=== PATIENT | female | born 1945 | race Two or more races ===

== ENCOUNTER 2023-12-26 11:38 | Emergency (ER) | payer BC ==
[~2023-12-26] VITALS: Ht 154.9 cm; Wt 62.1 kg
[2023-12-26 12:16] VITALS: BP 169/78; PULSE 94; RESP 16; TEMP 99.3; O2SAT 99
[2023-12-26] MEDS: ACETAMINOPHEN 500 MG TAB PO ONE (12:53)
[2023-12-26] MEDS ORDERED: TRAM-626 PO (13:50)
== END 2023-12-26 13:56 | disposition home or self-care (01) ==
LOC: ER 11:38
DX: M51.16 Intervertebral disc disorders with radiculopathy, lumbar region (principal); I10 Essential (primary) hypertension; E78.5 Hyperlipidemia, unspecified
CPT/HCPCS: 72131

== ENCOUNTER → 2024-04-15 | Outpatient (CLI) | payer BC ==
[~2024-04-15] MED LIST: TRAM-626 PO
== END | disposition home or self-care (01) ==
LOC: LAB 12:22
PROVIDERS: ATTEND Family Medicine
DX: D48.5 Neoplasm of uncertain behavior of skin (principal)

== ENCOUNTER → 2024-04-26 | Outpatient (CLI) | payer BC ==
[2024-04-26 11:29] LABS: Urine Bacteria None Seen /hpf (None Seen)
[2024-04-26 11:44] LABS: Basophils # (auto) 0.1 10 ^3/uL (0-0.2); Eosinophils # (auto) 0.2 10 ^3/uL (0-0.8); Monocytes # (auto) 0.5 10 ^3/uL (0-1.3); Neutrophils # (auto) 2.3 10 ^3/uL (1.6-8.6)
[2024-04-26 11:45] LABS: Urine Blood Negative /uL (Negative); Urine Clarity Clear (Clear); Urine Color Yellow (Yellow); Urine Hyaline Cast FEW /lpf (0 - 2); Urine Mucus FEW (None Seen); Urine Protein, UAD TRACE (Negative); Urine Urobilinogen Normal (Negative); Urine WBC 2 /hpf (0 - 5); Urine pH 5.5 (5.0-9.0)
[2024-04-26 11:49] LABS: Basophils % (auto) 1.2 % (0.0-2.0); Eosinophils % (auto) 3.4 % (0.0-7.0); Hematocrit 34.7 % (36.0-46.0); Hemoglobin 11.1 g/dL (12.2-16.2); Lymphocytes # (auto) 2.5 10 ^3/uL (0.4-5.4); Lymphocytes % (auto) 44.4 % (10.0-50.0); Mean Corpuscular Hemoglobin 24.4 pg (28.0-32.0); Mean Corpuscular Hgb Conc. 32.1 g/dL (32.0-36.0); Mean Corpuscular Volume 76.1 fL (80.0-100.0); Monocytes % (auto) 8.7 % (0.0-12.0); Neutrophils % (auto) 42.3 % (37.0-80.0); Platelet Count (auto) 240 10^3/uL (140-450); Red Blood Cells 4.57 10^6/uL (4.0-5.20); Red Cell Distribution Width 16.5 % (11.8-14.3); White Blood Cell 5.5 10^3/uL (4.4-10.8)
[2024-04-26 12:07] LABS: Alanine Aminotransferase 16 U/L (7-40); Albumin 4.5 g/dL (3.2-4.8); Alkaline Phosphatase 143 U/L (46-116); Anion Gap 5 (5-15); Aspartate Aminotransferase 15 U/L (13-40); BUN/Creatinine Ratio 17.6 (10.0-20.0); Blood Urea Nitrogen 16 mg/dL (9-23); Calcium 10.2 mg/dL (8.7-10.4); Carbon Dioxide 25 mmol/L (20-30); Chloride 107 mmol/L (98-107); Cholesterol 182 mg/dL (< 200); Glucose 111 mg/dL (74-106); HDL Cholesterol 63 mg/dL (40-59); LDL Cholesterol 102 mg/dL (< 100); Potassium 4.5 mmol/L (3.5-5.1); Sodium 137 mmol/L (136-145); Triglycerides 100 mg/dL (< 150)
[2024-04-26 12:08] LABS: Bilirubin, Total 0.6 mg/dL (0.2-1.0); Total Protein 7.3 g/dL (5.7-8.2)
== END | disposition home or self-care (01) ==
LOC: LAB 11:19
DX: I10 Essential (primary) hypertension (principal); E78.5 Hyperlipidemia, unspecified; E55.9 Vitamin D deficiency, unspecified; Z79.899 Other long term (current) drug therapy
CPT/HCPCS: 36415; 80053; 80061; 81001; 82306; 83036; 84443; 85025; 87086

== ENCOUNTER → 2024-07-20 | Outpatient (CLI) | payer BC ==
[2024-07-20 11:44] LABS: Beta HCG, Quantitative 2.3 mIU/mL (1.5-4.2)
[2024-07-20 11:47] LABS: Anion Gap 9 (5-15); Carbon Dioxide 23 mmol/L (20-31); Chloride 104 mmol/L (98-107); Potassium 4.4 mmol/L (3.5-5.1); Sodium 136 mmol/L (136-145)
[2024-07-20 11:49] LABS: Calcium 10.6 mg/dL (8.7-10.4)
[2024-07-20 11:53] LABS: BUN/Creatinine Ratio 21.6 (10.0-20.0); Blood Urea Nitrogen 21 mg/dL (9-23); Glucose 117 mg/dL (74-106)
[2024-07-21 08:06] LABS: AFP Serum Tumor Marker 4.1 ng/mL (0.0-8.7); Cancer Antigen (CA) 125 13.1 U/mL (0.0-38.1)
== END | disposition home or self-care (01) ==
LOC: LAB 10:13
PROVIDERS: ATTEND Obstetrics & Gynecology
DX: D25.9 Leiomyoma of uterus, unspecified (principal); R79.89 Other specified abnormal findings of blood chemistry; R19.00 Intra-abdominal and pelvic swelling, mass and lump, unspecified site; R19.09 Other intra-abdominal and pelvic swelling, mass and lump; N94.89 Other specified conditions associated with female genital organs and menstrual cycle; C56.9 Malignant neoplasm of unspecified ovary
CPT/HCPCS: 36415; 80048; 82105; 82378; 83615; 84702; 86304

== ENCOUNTER 2024-10-19 12:51 | Emergency (ER) | payer BC ==
[~2024-10-19] VITALS: Ht 154.9 cm; Wt 65.2 kg
[2024-10-19 13:16] VITALS: BP 166/75; RESP 20; O2SAT 98
[2024-10-19] MEDS ORDERED: ASPirin 81 mg TAB PO ONE (13:30)
--- NOTE | 2024-10-19 13:45 | DVH ---
EXAM: CT HEAD WITHOUT CONTRAST INDICATION: FIORE TECHNIQUE: CT of the head without intravenous contrast. Radiation Dose Information: CT Dose: CTDI volume is 54.95 mGy. Dose-length product is 1083.04 mGy*cm The dose indicators for CT are the volume Computed Tomography (CT) Dose Index (CTDIvol) and the Dose Length Product (DLP), and are measured in units of mGy and mGy-cm, respectively. These indicators are not patient dose, but values generated from the CT scanner acquisition factors. The report includes radiation exposure data for exposures received during this examination. COMPARISON: None FINDINGS: There is no evidence of acute intracranial hemorrhage, extra-axial collection, mass effect, midline s hift, herniation or hydrocephalus. The ventricles, sulci and cisterns are age appropriate. The leger-white differentiation is intact. Patchy periventricular and subcortical white matter hypoattenuation is nonspecific but may be related to small vessel ischemic disease. The visualized paranasal sinuses and mastoid air cells are clear. The surrounding soft tissues and osseous structures are unremarkable. IMPRESSION: 1. No acute intracranial hemorrhage 2. No paranasal sinus disease 3. No CT findings of territorial ischemia HS:Y
[2024-10-19 13:47] VITALS: PULSE 80
--- NOTE | 2024-10-19 13:47 | ED.PDOC ---
HPI (NEURO) HPI Comments 79y F who presents to the ED for chief complaint of face. Pt states she has been having intermittent numbness and pain around her mouth but states it had come back 25 minutes prior to ED arrival with associated chest pain. Pt otherwise is axox4 and denies any changes in vision, speech, or gait. Pt states she has had this in the past but states it occurs intermittently. Pt states she had appt with Dr. Lindsay 1 days prior and states she was told he recently had 2 minor heart attacks and states she is currently on Plavix. Pt otherwise denies any other symptoms at this time. Chief Complaint: Face pain Time Seen by MD: 13:41 Reviewed Notes: Medications, Allergies Information Source: Patient Mode of Arrival: Ambulatory Brought in by: self Severity: Moderate Dizziness/Weakness Severity: Does not affect activitie Headache Severity: None Timing: Minutes, Hours, Days, Weeks Duration: Since onset Prehospital treatment: None Numbness Location: Facial Onset: At rest Circumstances: Spontaneous Symptoms: Numbness History of: DM, Hypertension Modifying factors: Nothing Associated Signs and Symptoms: Chest Pain, Numbness Past Medical History PAST MEDICAL HISTORY: DM, High Lipids, HTN Surgical History: BTL, Tonsillectomy 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 Family History Family History: Family hx of DM, Family hx of heart kenna Social History Smoker: Non-Smoker Alcohol: Denies ETOH Use Drugs: Denies Drug Use Lives In: Home Constitutional: denies: chills, diaphoresis, fatigue, fever, malaise, sweats, weakness, others EENTM: denies: blurred vision, double vision, ear bleeding, ear discharge, ear drainage, ear pain, ear ringing, eye pain, eye redness, hearing loss, mouth pain, mouth swelling, nasal discharge, nose bleeding, nose congestion, nose pain, photophobia, tearing, throat pain, throat swelling, voice changes, others Respiratory: denies: cough, hemoptysis, orthopnea, SOB at rest, shortness of breath, SOB with excertion, stridor, wheezing, others Cardiovascular: reports: chest pain; denies: dizzy spells, diaphoresis, Dyspnea on exertion, edema, irregular heart beat, left arm pain, lightheadedness, palpitations, PND, syncope, others Gastrointestinal: denies: abdomen distended, abdominal pain, blood streaked bowels, constipated, diarrhea, dysphagia, difficulty swallowing, hematemesis, melena, nausea, poor appetite, poor fluid intake, rectal bleeding, rectal pain, vomiting, others Genitourinary: denies: abnormal vagina bleeding, burning, dyspareunia, dysuria, flank pain, frequency, hematuria, incontinence, pain, , vagina discharge, urgency, others Neurological: reports: numbness; denies: dizziness, fainting, headache, left sided numbness, left sided weakness, paresthesia, pre-existing deficit, right sided numbness, right sided weakness, seizure, speech problems, tingling, tremors, weakness, others Musculoskeletal: denies: back pain, gout, joint pain, joint swelling, muscle pain, muscle stiffness, neck pain, others Integumetry: denies: bruises, change in color, change in hair/nails, dryness, laceration, lesions, lumps, rash, wounds, others Allergic/Immunocompromised: denies: Difficulty Healing, Frequent Infections, Hives, Itching, others Hematologic/Lymphatic: denies: anemia, blood clots, easy bleeding, easy bruising, swollen glands, others Endocrine: denies: excessive hunger, excessive sweating, excessive thirst, excessive urination, flushing, intolerance to cold, intolerance to heat, unexplained weight gain, unexplained weight loss, others Psychiatric: denies: anxiety, bipolar disorder, depression, hopeless, panic disorder, schizophrenia, sleepless, suicidal, others All Other Systems: Reviewed and Negative Physical Exam General Appearance: No Apparent Distress HEENT: Normal ENT Inspection, Pharynx Normal, TMs Normal Neck: Full Range of Motion, Non-Tender, Normal, Normal Inspection Respiratory: Chest Non-Tender, Lungs Clear, No Accessory Muscle Use, No Respiratory Distress, Normal Breath Sounds Cardiovascular: No Edema, No JVD, No Murmur, No Gallop, Normal Peripheral Pulses, Regular Rate/Rhythm Breast Exam: Deferred Gastrointestinal: No Organomegaly, Non Tender, No Pulsatile Mass, Normal Bowel Sounds, Soft Genitalia: Deferred Pelvic: Deferred Rectal: Deferred Extremities: No calf tenderness, Normal capillary refill, Normal inspection, Normal range of motion, Non-tender, No pedal edema Musculoskeletal : Apperance: Normal Neurologic: Alert, 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 Was a procedure done?: No Differential Diagnosis (SZ) Seizure: N/A General Weakness: Anemia, CVA, Dehydration, Electrolyte imbalance, Hypo glycemia, Hypotension, TIA Headache: Migraine, Closed Head Injury, Sinusitis X-Ray, Labs, Meds, VS Vital Signs Date Time Temp Pulse Resp B/P (MAP) Pulse Ox O2 Delivery O2 Flow Rate FiO2 10/19/24 13:47 80 10/19/24 13:17 80 10/19/24 13:16 98.6 80 20 166/75 (105) 98 EXAM: CT HEAD WITHOUT CONTRAST IMPRESSION: 1. No acute intracranial hemorrhage 2. No paranasal sinus disease 3. No CT findings of territorial ischemia CT scan of the head is negative Chest x-ray is negative At this time we did go ahead and continue to evaluate the patient but it seems like the patient was eloped from the department's Images Reviewed?: Images reviewed and evaluated by me Time of 1ST Reevaluation: 14:15 Reevaluation 1ST: Unchanged Patient Education/Counseling: Diagnosis, Treatment, Prognosis Family Education/Counseling: No Family Present Additional Information - I reviewed the following notes from patient's past medical encounters: - The following tests were ordered, and results were reviewed by me: (Labs, X- Ray, EKG): cbc, chest x-ray, ua, troponin x3, ekg x3, bmp, ct head w/o contrast - Additional information was gathered from interviewing the following independent Historian: (Family, Other Providers, EMT): EMS - I reviewed and agreed with the following test results read by other provider: radiologist - I discussed treatments and results with medical personnel and: (consultants, family): none Departure 1 Departure Time of Disposition: 15:04 Impression: Primary Impression: Facial numbness Disposition: 07 LEFT AWOL/ELOPED Condition: Fair Discharged With: Self Critical Care Note Critical Care Time?: No Stability Stability form required: No Heart Score Heart Score: Heart Score Response (Comments) Value History Slightly Suspicious 0 EKG Normal 0 Age >65 2 Risk Factors >3 or Hx ASHD 2 Troponin N/A 0 Total 4 I personally scribed for ASAD SUTTON MD ([email or web address]) on 10/19/24 at 13:47. Electronically submitted by Stan Cole ([email or web address]). I personally scribed for ASAD SUTTON MD ([email or web address]) on 10/19/24 at 13:49. Electronically submitted by Stan Cole ([email or web address]). ASAD SUTTON MD Oct 19, 2024 13:47
--- NOTE | 2024-10-19 13:49 | DVH ---
EXAM: XY CHEST TWO VIEWS ROUTINE CLINICAL HISTORY: cp COMPARISON: none TECHNIQUE: Frontal and lateral view of the chest was obtained FINDINGS: Lines and Tubes: None Lungs: No focal consolidation. Pleura: No effusion. No pneumothorax. Cardiomediastinal contours: Unremarkable. Atherosclerotic vascular calcifications of the thoracic ao rta are noted. Bones: No acute osseous abnormality. IMPRESSION: No acute cardiopulmonary disease.
--- NOTE | 2024-10-20 09:56 | ECG ---
[facility] Test Date: 2024-10-19 Test Time: 13:17:02 Pat Name: HECTOR PENNY Department: ER Room: Gender: F [place] Tier: IC : 1945 Requested By: ASAD SUTTON Order Number: [id number] Reading MD: Charles Blair Measurements Intervals Tiona Rate: 80 P: 40 AR: 135 QRS: -4 QRSD: 90 T: 63 QT: 390 QTc: 450 Interpretive Statements Sinus rhythm Probable left atrial enlargement Electronically Signed On 10-20-2024 12:00:18 PST by Charles Blair Please click the below link to view image of tracing.
== END 2024-10-19 14:39 | disposition left against medical advice (07) ==
LOC: ER 12:59
DX: R20.0 Anesthesia of skin (principal); E11.9 Type 2 diabetes mellitus without complications; I10 Essential (primary) hypertension; E78.5 Hyperlipidemia, unspecified; R51.9 Headache, unspecified; R07.89 Other chest pain; Z90.89 Acquired absence of other organs
CPT/HCPCS: 70450; 71046; 82947; 93005

== ENCOUNTER → 2024-10-28 | Outpatient (CLI) | payer MEDICARE | END | disposition home or self-care (01) | LOC: Rad HDHVI 10:58 | PROVIDERS: ATTEND Internal Medicine Cardiovascular Disease | DX: I10 Essential (primary) hypertension (principal); E78.5 Hyperlipidemia, unspecified | CPT/HCPCS: 93306 ==

== ENCOUNTER → 2024-10-31 | Outpatient (CLI) | payer MEDICARE ==
[~2024-10-31] MED LIST changes: +AMLO1TAB23 PO; +ASPI-543 PO; +ATOR40TA52 PO; +CALC1TAB92 PO; +CLOP75TA70 PO; +GABA-1250 PO; +MAGN250T19 PO; +VERI5TAB PO; +[UNRECOGNIZED DRUG - CODE] PO
--- NOTE | 2024-11-11 14:36 | DVHSR ---
APPROVED REPORT Exam: Nuclear Stress Test Indication: Screening for CAD Ht: 5 ft 1 in Wt: 140 lbs BSA: 1.62 m2 HR: 65 bpm BP: 154/66 mmHg BMI: 26.44 Rhythm: NSR Medical History Medical History: HTN, Hypercholesterolemia, Diabetes Medications: Verquvo, Plavix, Atorvastatin, Aspirin Allergies: No known drug allergies Cardiac Risk Factors: Family Hx of CAD Stress Test Details Stress Test: Exercise stress testing was performed using a Francis protocol. HR Resting HR: 65 bpmMax Heart Rate (APMHR): 139.555255 bpm Max HR Achieved: 129 bpmTarget HR (85% APMHR): 118.527641 bpm % of APMHR: 92.81 Recovery HR: 70 bpm HR response to stress: Normal HR response to stress BP Resting BP: 154/66 mmHg Max BP: 219/68 mmHg Recovery BP: 157/64 mmHg BP response to stress: Resting hypertension- exaggerated response ECG Resting ECG: Sinus Rhythm Stress ECG: Sinus Tachycardia Arrhythmia: None Recovery ECG: Sinus Rhythm Clinical Reason for Termination: Target HR achieved Stress Symptoms: Dyspnea Exercise duration: 3 min 40 sec Exercise capacity: 4.6 METs Dyspnea subsided during recovery. Stress ECG Conclusion ECG RESPONSE NON ISCHEMIC CARDIOLITE IMAGES NO PERFUSION ABNL LESS THAN 10% LIKELIHOOD FOR STRESS INDUCED ISCHEMIA EF >55% NM EXAM: Myocardial Perfusion REST/STRESS Imaging Protocol: Rest Tc-99m/Stress Tc-99m 1 day Resting Data Rest SPECT myocardial perfusion imaging was performed in supine position 30 minutes following the int ravenous injection of 10.8 mCi of Tc-99m Sestamibi. Time of rest injection: 1001 Time of rest imagin Administration Route: IV Administration Site: Left AC Exercise Stress At peak stress, the patient was injected intravenously with 32.6 mCi of Tc-99m Sestamibi. Time of stress injection: 1118 Time of stress imagin Administration Route: IV Administration Site: Left AC Heart Rate at time of stress injection: 127 bpm. Patient continued to exercise for 1 minute(s). Gated Stress SPECT was performed 15 minutes after stress injection. The images were gated to evaluate regional wall motion and calculate left ventricular ejection fracti on. Comments Cardiolite injection at 2 minutes, 36 seconds into test. Study Data Post stress, the left ventricular ejection was >55%.. Nuclear Conclusion ECG RESPONSE NON ISCHEMIC CARDIOLITE IMAGES NO PERFUSION ABNL LESS THAN 10% LIKELIHOOD FOR STRESS INDUCED ISCHEMIA EF >55%
== END | disposition home or self-care (01) ==
LOC: Rad HDHVI 09:41
PROVIDERS: ATTEND Internal Medicine Cardiovascular Disease
DX: R00.0 Tachycardia, unspecified (principal); I10 Essential (primary) hypertension; E11.9 Type 2 diabetes mellitus without complications; I65.23 Occlusion and stenosis of bilateral carotid arteries; E78.00 Pure hypercholesterolemia, unspecified; F41.9 Anxiety disorder, unspecified; Z82.49 Family history of ischemic heart disease and other diseases of the circulatory system
CPT/HCPCS: 78452; 93017; A9500; 96374

== ENCOUNTER → 2024-11-14 | Outpatient (CLI) | payer MEDICARE, OTHER ==
[2024-11-14 13:12] VITALS: BP 169/77; PULSE 72; RESP 17; O2SAT 97
[2024-11-14 13:25] VITALS: BP 172/79; PULSE 67; RESP 17; O2SAT 97
--- NOTE | 2024-11-14 14:33 | DVH ---
XY CHEST TWO VIEWS ROUTINE CLINICAL HISTORY: PRE OP./pain COMPARISON: XY CHEST TWO VIEWS ROUTINE on DOS: 10/19/24 TECHNIQUE: Frontal and lateral view of the chest was obtained FINDINGS: Lines and Tubes: None Lungs: No focal consolidation. Pleura: No effusion. No pneumothorax. Cardiomediastinal contours: Unremarkable Bones: No acute osseous abnormality. IMPRESSION: No acute cardiopulmonary disease.
== END | disposition home or self-care (01) ==
LOC: Rad HDHVI 12:57
PROVIDERS: ATTEND Internal Medicine Cardiovascular Disease
DX: Z01.818 Encounter for other preprocedural examination (principal)
CPT/HCPCS: 71046; 93005; G0463

== ENCOUNTER 2024-11-18 09:30 | Inpatient (IN) | payer MEDICARE ==
[2024-11-14 14:08] LABS: Basophils # (auto) 0.1 10 ^3/uL (0-0.2); Basophils % (auto) 1.5 % (0.0-2.0); Eosinophils # (auto) 0.1 10 ^3/uL (0-0.8); Eosinophils % (auto) 1.7 % (0.0-7.0); Hematocrit 32.2 % (36.0-46.0); Hemoglobin 10.6 g/dL (12.2-16.2); Lymphocytes # (auto) 2.1 10 ^3/uL (0.4-5.4); Mean Corpuscular Hemoglobin 24.8 pg (28.0-32.0); Mean Corpuscular Hgb Conc. 32.8 g/dL (32.0-36.0); Mean Corpuscular Volume 75.6 fL (80.0-100.0); Monocytes # (auto) 0.5 10 ^3/uL (0-1.3); Monocytes % (auto) 9.5 % (0.0-12.0); Neutrophils # (auto) 2.6 10 ^3/uL (1.6-8.6); Neutrophils % (auto) 48.3 % (37.0-80.0); Platelet Count (auto) 286 10^3/uL (140-450); Red Blood Cells 4.25 10^6/uL (4.0-5.20); Red Cell Distribution Width 17.5 % (11.8-14.3); White Blood Cell 5.3 10^3/uL (4.4-10.8)
[2024-11-14 14:20] LABS: Chloride 104 mmol/L (98-107); INR 0.95 (0.9-1.15); Potassium 4.3 mmol/L (3.5-5.1); Prothrombin Time 10.1 sec (9.3-11.8); Sodium 138 mmol/L (136-145)
[2024-11-14 14:21] LABS: Anion Gap 10 (5-15); Carbon Dioxide 24 mmol/L (20-31)
[2024-11-14 14:27] LABS: BUN/Creatinine Ratio 28.3 (10.0-20.0)
[2024-11-14 14:29] LABS: Blood Urea Nitrogen 26 mg/dL (9-23); Calcium 10.8 mg/dL (8.7-10.4); Glucose 108 mg/dL (74-106)
[~2024-11-18] VITALS: Ht 154.9 cm; Wt 68.9 kg
[2024-11-18] VITALS (13 sets, daily range): BP systolic 81–110; BP diastolic 42–54; PULSE 51–80; RESP 12–19; TEMP 97.8–98.7; O2SAT 96–100
[~2024-11-18 09:30] MED LIST changes: -AMLO1TAB23 PO; -TRAM-626 PO
[2024-11-18] MEDS: LIDOCAINE 2%HCL (LOCAL ANESTH.) INJ 20ML MDV ONE (12:10)
[2024-11-18] MEDS: HEPARIN IN NS 1000Units/500mL 1,500 ML ONE (12:10)
[2024-11-18] MEDS: IOHEXOL 350 MG/ML 100ML IJ ONE (12:35)
[2024-11-18] MEDS: GLYCOPYRROLATE 0.2 MG/ML 1ML VIAL ONE ×2 (12:45→13:30)
[2024-11-18] MEDS: PHENYLEPHRINE HCL 10 MG/ML VL ONE (12:45)
[2024-11-18] MEDS: ANGIOMAX 250 MG VIAL IV ONE (12:45)
[2024-11-18] MEDS: SODIUM CHL 0.9% 50 ML ONE (12:45)
[2024-11-18] MEDS: CLOPIDOGREL BISULFATE 75 MG TAB ONE (13:32)
--- NOTE | 2024-11-18 15:32 | DVHOP ---
DATE OF SURGERY: 11/18/2024 PROCEDURE TO BE PERFORMED: * Selective left and right carotid angiography. * Thrombectomy of the right internal carotid artery with a 4.0 x 12 mm shockwave thrombectomy catheter. The patient now to undergo carotid angiography. DESCRIPTION OF PROCEDURE: Using a Cook needle, the right femoral artery was engaged with Seldinger technique. A 6-Nigerian sheath in the right femoral artery. The patient received conscious sedation, thrombectomy, angioplasty with stent placement. Then, using a 6-Nigerian JR4 diagnostic catheter, selective left and right carotid and cerebral angiographies were performed. Then, using 6-Nigerian JR4 diagnostic catheter and a Supercore wire, we were able to cannulate the right distal common carotid artery. The 6-Nigerian system was then exchanged for an 8-Nigerian system and 8-Nigerian sheath was introduced. Then, an 8-Nigerian multipurpose guide catheter was placed in the distal right common carotid artery. Then, the Supercore wire was removed and an Emboshield wire was then placed distal to the stenosis. The Emboshield device was then deployed. Following the deployment of the Emboshield, the highly calcified lesion was then atherectomized slowly with a 4.0 x 12 mm thrombectomy catheter shockwave device. Following the thrombectomy a 7 x 9 x 30 mm Xact stent was then deployed across the lesion. We elected not to post-dilate the stent because adequate apposition was noted. The Emboshield was then retrieved using the Emboshield device. Angiography was performed for the completion of the study. There were no complications. The patient tolerated the procedure well. Right femoral arteriotomy site was closed using the Angio-Seal device. RESULTS: * Left and right common carotid without any flow restrictive lesion. * Left and right external carotid artery had ostial 30% narrowing bilaterally, but no flow restrictive lesion. * Right internal carotid artery, however, has a 75-80% heavily calcified lesion, status post angioplasty with thrombectomy with a 7 x 9 x 30 mm Xact stent with less than 10% residual stenosis. * Left internal carotid artery, however, has about a 40-50% narrowing. At this time, I do not believe any additional therapy is required. Conservative medical management, dual antiplatelet therapy should be initiated. Neftali Freitas MD SA/STEPHANE TID: [id number] RECEIPT: [id number]
--- NOTE | 2024-11-18 15:40 | DVHHP ---
ADMIT DATE: 11/18/2024 HISTORY OF PRESENT ILLNESS: The patient is an 79-year-old with history of TIA, right-sided weakness. At this time to undergo carotid angiography. PERTINENT MEDICAL HISTORY: Significant for hypertension, hyperlipidemia, remote history of tobacco use, but discontinued smoking some 37 years ago. Strong family history for coronary artery disease, history of myocardial infarction. She had no previous history of CVA, but she had TIA, peripheral vascular disease. No history of chronic lung disease at this time. She is borderline diabetic, but she is diet controlled at this time. Denies any cardiac arrest. Denies any renal insufficiency. No heart failure at this point. Significant hypertension, however. CURRENT MEDICATIONS: Include atorvastatin 40 mg everyday, amlodipine 10 mg with olmesartan 20 mg everyday, aspirin 81 mg daily, magnesium 250 mg p.o. daily as well as Plavix has been initiated because of the TIA symptoms with high-grade narrowing noted. The patient is now to undergo carotid angiography with the possibility of angioplasty. The patient, because of active disease, I felt that is high risk for any kind of carotid endarterectomy and thus, the patient will undergo carotid artery angiography with possibility of angioplasty. Risks and benefits were explained to the patient. PHYSICAL EXAMINATION: VITAL SIGNS: Blood pressure is 124/80, pulse of 70, O2 saturation 98% on room air. HEENT: Pupils are reactive. Funduscopic exam is benign. Sclerae anicteric. Extraocular muscles are intact. Tympanic membranes are negative. Oral mucosa moist. Posterior pharynx without any exudate. NECK: No JVD appreciated. are 2+ symmetrical. No evidence of any carotid bruit. Thyroid is within normal limits. No cervical adenopathy. No supraclavicular adenopathy. PULMONARY: Clear to auscultation. CARDIOVASCULAR: Regular rate. ABDOMEN: Soft, nontender, normal bowel sounds. EXTREMITIES: Pulses are 2+ symmetrical bilaterally. NEUROLOGIC: The patient is intact at this time. RECOMMENDATIONS: Thus, the patient now to undergo carotid angiography. Further recommendations after the angiogram. Neftali Freitas MD SA/STEPHANE/REBECA TID: [id number] RECEIPT: [id number]
[2024-11-18] MEDS: SODIUM CHLORIDE 0.9% 1,000 ML IV SCH (16:50)
[2024-11-18] MEDS: ATORVASTATIN 20 MG TAB PO SCH (21:09)
[2024-11-19] VITALS (9 sets, daily range): BP systolic 94–153; BP diastolic 40–90; PULSE 39–83; RESP 16–22; TEMP 97.8–98.7; O2SAT 93–97
[2024-11-19] MEDS: DOPamine 1600MCG/ML D5W 250 ML IV SCH (05:40)
[2024-11-19] MEDS: CLOPIDOGREL BISULFATE 75 MG TAB PO SCH (09:28)
--- NOTE | 2024-11-19 09:57 | DVHDS ---
DATE OF DISCHARGE: 11/18/2024 DISCHARGE DIAGNOSIS: The patient with TIA of the right side, affecting the right side. She underwent successful angioplasty with stent placement of the right internal carotid artery with thrombectomy with a 7 x 9 x 30 mm Xact stent. HOSPITAL COURSE: The patient is clinically stable. At that time, the patient was hypotensive with IV fluid hydration. The patient's symptoms improved. She was also bradycardic, but now heart rate is improved back to baseline. We will discharge home at this time. Follow up with me in one week. Stable at the time of discharge. DISPOSITION: Home. ACTIVITY: As instructed. DIET: Will be 2 gram sodium diet. Neftali Freitas MD SA/PAULA/ANTON/MARILYN TID: [id number] RECEIPT: [id number]
[2024-11-19] MEDS: ASPirin 81 mg TAB PO SCH (10:00)
[2024-11-20] VITALS (8 sets, daily range): BP systolic 113–147; BP diastolic 45–95; PULSE 53–65; RESP 16–18; TEMP 97.9–98.3; O2SAT 91–96
[2024-11-21] VITALS (8 sets, daily range): BP systolic 115–133; BP diastolic 42–75; PULSE 55–67; RESP 16–20; TEMP 97.7–98.4; O2SAT 91–98
--- NOTE | 2024-11-21 13:34 | DVHPN2 ---
Progress Note - Dictate Date Seen: Nov 21, 2024 Medical Necessity Reason Pt with a Central, PICC or Fol: Yes Subjective HISTORY OF PRESENT ILLNESS: The patient is an 79-year-old with history of TIA, right-sided weakness. At this time to undergo carotid angiography. PERTINENT MEDICAL HISTORY: Significant for hypertension, hyperlipidemia, remote history of tobacco use, but discontinued smoking some 37 years ago. Strong family history for coronary artery disease, history of myocardial infarction. She had no previous history of CVA, but she had TIA, peripheral vascular disease. No history of chronic lung disease at this time. She is borderline diabetic, but she is diet controlled at this time. Denies any cardiac arrest. Denies any renal insufficiency. No heart failure at this point. Significant hypertension, however. CURRENT MEDICATIONS: Include atorvastatin 40 mg everyday, amlodipine 10 mg with olmesartan 20 mg everyday, aspirin 81 mg daily, magnesium 250 mg p.o. daily as well as Plavix has been initiated because of the TIA symptoms with high-grade narrowing noted. The patient is now to undergo carotid angiography with the possibility of angioplasty. The patient, because of active disease, I felt that is high risk for any kind of carotid endarterectomy and thus, the patient will undergo carotid artery angiography with possibility of angioplasty. Risks and benefits were explained to the patient. S/P CAROTID STENTING NOW WITH BRADYCARDIA HYPOTENSION DOPAMINE vital signs Vital Sign Date Time Temp Pulse Resp B/P (MAP) Pulse Ox O2 Delivery O2 Flow Rate FiO2 11/21/24 12:56 98.4 60 16 127/51 (76) 91 98.4 11/21/24 08:15 Room Air* 0 21 Total Intake and Output 11/20/24 11/20/24 11/21/24 15:00 23:00 07:00 Intake Total 800 ml 300 ml Balance 800 ml 300 ml medications Current Medications Medications Dose Ordered Sig/Sandra Route Start Time Stop Time Status Last Admin Dose Admin Aspirin 81 mg DAILY PO 11/19/24 10:00 11/21/24 10:51 81 MG Clopidogrel Bisulfate 75 mg DAILY PO 11/19/24 10:00 11/21/24 10:51 75 MG Atorvastatin Calcium 40 mg HS PO 11/18/24 22:00 11/20/24 21:05 40 MG Sodium Chloride 1,000 ml @ 100 mls/hr Q10H IV 11/18/24 16:00 11/21/24 04:00 100 MLS/HR Dopamine HCl/ Dextrose 250 ml @ 6.356 mls/ hr Q24H IV 11/19/24 05:30 11/20/24 05:32 6.356 MLS/HR objective PHYSICAL EXAMINATION: VITAL SIGNS: Blood pressure is 124/80, pulse of 70, O2 saturation 98% on room air. HEENT: Pupils are reactive. Funduscopic exam is benign. Sclerae anicteric. Extraocular muscles are intact. Tympanic membranes are negative. Oral mucosa moist. Posterior pharynx without any exudate. NECK: No JVD appreciated. are 2+ symmetrical. No evidence of any carotid bruit. Thyroid is within normal limits. No cervical adenopathy. No supraclavicular adenopathy. PULMONARY: Clear to auscultation. CARDIOVASCULAR: Regular rate. ABDOMEN: Soft, nontender, normal bowel sounds. EXTREMITIES: Pulses are 2+ symmetrical bilaterally. NEUROLOGIC: The patient is intact at this time. laboratory and microbiology Laboratory Tests 11/14/24 13:56 Test 11/14/24 13:56 Range/Units Serum Glucose 108 H 74-106 mg/dL Problem List HISTORY OF PRESENT ILLNESS: The patient is an 79-year-old with history of TIA, right-sided weakness. At this time to undergo carotid angiography. PERTINENT MEDICAL HISTORY: Significant for hypertension, hyperlipidemia, remote history of tobacco use, but discontinued smoking some 37 years ago. Strong family history for coronary artery disease, history of myocardial infarction. She had no previous history of CVA, but she had TIA, peripheral vascular disease. No history of chronic lung disease at this time. She is borderline diabetic, but she is diet controlled at this time. Denies any cardiac arrest. Denies any renal insufficiency. No heart failure at this point. Significant hypertension, however. CURRENT MEDICATIONS: Include atorvastatin 40 mg everyday, amlodipine 10 mg with olmesartan 20 mg everyday, aspirin 81 mg daily, magnesium 250 mg p.o. daily as well as Plavix has been initiated because of the TIA symptoms with high-grade narrowing noted. The patient is now to undergo carotid angiography with the possibility of angioplasty. The patient, because of active disease, I felt that is high risk for any kind of carotid endarterectomy and thus, the patient will undergo carotid artery angiography with possibility of angioplasty. Risks and benefits were explained to the patient. S/P CAROTID STENTING NOW WITH BRADYCARDIA HYPOTENSION DOPAMINE Assessment/Plan TITRATE OFF DOPAMINE Plan discussed with: Patient Critical Care Time(min): 35 JOSE LAGOS MD Nov 21, 2024 13:34
[2024-11-22 01:00] VITALS: BP 128/83; PULSE 57; RESP 18; TEMP 97.6; O2SAT 97
[2024-11-22 05:00] VITALS: BP 132/46; PULSE 57; RESP 19; TEMP 97.8; O2SAT 93
[2024-11-22 08:00] VITALS: PULSE 56; PULSE 58; RESP 16; O2SAT 95
[2024-11-22 08:30] VITALS: BP 136/49; PULSE 58; RESP 16; TEMP 98.5; O2SAT 95
--- NOTE | 2024-11-22 10:27 | DVHPN2 ---
Progress Note - Dictate Date Seen: Nov 20, 2024 Medical Necessity Reason Pt with a Central, PICC or Fol: Yes Subjective HISTORY OF PRESENT ILLNESS: The patient is an 79-year-old with history of TIA, right-sided weakness. At this time to undergo carotid angiography. PERTINENT MEDICAL HISTORY: Significant for hypertension, hyperlipidemia, remote history of tobacco use, but discontinued smoking some 37 years ago. Strong family history for coronary artery disease, history of myocardial infarction. She had no previous history of CVA, but she had TIA, peripheral vascular disease. No history of chronic lung disease at this time. She is borderline diabetic, but she is diet controlled at this time. Denies any cardiac arrest. Denies any renal insufficiency. No heart failure at this point. Significant hypertension, however. CURRENT MEDICATIONS: Include atorvastatin 40 mg everyday, amlodipine 10 mg with olmesartan 20 mg everyday, aspirin 81 mg daily, magnesium 250 mg p.o. daily as well as Plavix has been initiated because of the TIA symptoms with high-grade narrowing noted. The patient is now to undergo carotid angiography with the possibility of angioplasty. The patient, because of active disease, I felt that is high risk for any kind of carotid endarterectomy and thus, the patient will undergo carotid artery angiography with possibility of angioplasty. Risks and benefits were explained to the patient. S/P CAROTID STENTING NOW WITH BRADYCARDIA HYPOTENSION DOPAMINE vital signs Vital Sign Date Time Temp Pulse Resp B/P (MAP) Pulse Ox O2 Delivery O2 Flow Rate FiO2 11/22/24 08:30 98.5 58 16 136/49 (78) 95 98.5 11/21/24 20:00 Room Air* 0 21 Total Intake and Output 11/21/24 11/21/24 11/22/24 15:00 23:00 07:00 Intake Total 360 ml 236 ml Balance 360 ml 236 ml medications Current Medications Medications Dose Ordered Sig/Sandra Route Start Time Stop Time Status Last Admin Dose Admin Aspirin 81 mg DAILY PO 11/19/24 10:00 11/21/24 10:51 81 MG Clopidogrel Bisulfate 75 mg DAILY PO 11/19/24 10:00 11/22/24 09:31 75 MG Atorvastatin Calcium 40 mg HS PO 11/18/24 22:00 11/21/24 21:11 40 MG Sodium Chloride 1,000 ml @ 100 mls/hr Q10H IV 11/18/24 16:00 11/22/24 00:40 100 MLS/HR objective PHYSICAL EXAMINATION: VITAL SIGNS: Blood pressure is 124/80, pulse of 70, O2 saturation 98% on room air. HEENT: Pupils are reactive. Funduscopic exam is benign. Sclerae anicteric. Extraocular muscles are intact. Tympanic membranes are negative. Oral mucosa moist. Posterior pharynx without any exudate. NECK: No JVD appreciated. are 2+ symmetrical. No evidence of any carotid bruit. Thyroid is within normal limits. No cervical adenopathy. No supraclavicular adenopathy. PULMONARY: Clear to auscultation. CARDIOVASCULAR: Regular rate. ABDOMEN: Soft, nontender, normal bowel sounds. EXTREMITIES: Pulses are 2+ symmetrical bilaterally. NEUROLOGIC: The patient is intact at this time. laboratory and microbiology Laboratory Tests 11/14/24 13:56 Test 11/14/24 13:56 Range/Units Serum Glucose 108 H 74-106 mg/dL Problem List HISTORY OF PRESENT ILLNESS: The patient is an 79-year-old with history of TIA, right-sided weakness. At this time to undergo carotid angiography. PERTINENT MEDICAL HISTORY: Significant for hypertension, hyperlipidemia, remote history of tobacco use, but discontinued smoking some 37 years ago. Strong family history for coronary artery disease, history of myocardial infarction. She had no previous history of CVA, but she had TIA, peripheral vascular disease. No history of chronic lung disease at this time. She is borderline diabetic, but she is diet controlled at this time. Denies any cardiac arrest. Denies any renal insufficiency. No heart failure at this point. Significant hypertension, however. CURRENT MEDICATIONS: Include atorvastatin 40 mg everyday, amlodipine 10 mg with olmesartan 20 mg everyday, aspirin 81 mg daily, magnesium 250 mg p.o. daily as well as Plavix has been initiated because of the TIA symptoms with high-grade narrowing noted. The patient is now to undergo carotid angiography with the possibility of angioplasty. The patient, because of active disease, I felt that is high risk for any kind of carotid endarterectomy and thus, the patient will undergo carotid artery angiography with possibility of angioplasty. Risks and benefits were explained to the patient. S/P CAROTID STENTING NOW WITH BRADYCARDIA HYPOTENSION DOPAMINE Assessment/Plan TITRATE OFF DOPAMINE OFF DOPAMINE BL STABLE HR STABLE Dietary Evaluation Review Comments: 2 Na Low fat Low cholesterol Cardiac diet Expected Outcomes/Goals: Improved cardio function, increased physical activities and gradual weight loss. Plan discussed with: Patient Critical Care Time(min): 35 JOSE LAGOS MD Nov 22, 2024 10:27
--- NOTE | 2024-11-22 10:29 | DVHDS2 ---
Discharge Summary Date of Admission Nov 18, 2024 at 14:59 Date of Discharge: Nov 22, 2024 Admitting Diagnosis CVA CAROTIS STENOSIS Labs/Diagnostic Data: Laboratory Results Test 11/14/24 13:56 White Blood Count 5.3 10^3/uL (4.4-10.8) Red Blood Count 4.25 10^6/uL (4.0-5.20) Hemoglobin 10.6 g/dL (12.2-16.2) Hematocrit 32.2 % (36.0-46.0) Mean Corpuscular Volume 75.6 fL (80.0-100.0) Mean Corpuscular Hemoglobin 24.8 pg (28.0-32.0) Mean Corpuscular Hemoglobin Concent 32.8 g/dL (32.0-36.0) Red Cell Distribution Width 17.5 % (11.8-14.3) Platelet Count 286 10^3/uL (140-450) Mean Platelet Volume 8.8 fL (6.9-10.8) Neutrophils (%) (Auto) 48.3 % (37.0-80.0) Lymphocytes (%) (Auto) 39.0 % (10.0-50.0) Monocytes (%) (Auto) 9.5 % (0.0-12.0) Eosinophils (%) (Auto) 1.7 % (0.0-7.0) Basophils (%) (Auto) 1.5 % (0.0-2.0) Neutrophils # (Auto) 2.6 10 ^3/uL (1.6-8.6) Lymphocytes # (Auto) 2.1 10 ^3/uL (0.4-5.4) Monocytes # (Auto) 0.5 10 ^3/uL (0-1.3) Eosinophils # (Auto) 0.1 10 ^3/uL (0-0.8) Basophils # (Auto) 0.1 10 ^3/uL (0-0.2) Nucleated Red Blood Cells 0.0 % Prothrombin Time 10.1 sec (9.3-11.8) Prothrombin Time INR 0.95 (0.9-1.15) Activated Partial Thromboplast Time 24.0 SEC (24.5-34.5) Sodium Level 138 mmol/L (136-145) Potassium Level 4.3 mmol/L (3.5-5.1) Chloride Level 104 mmol/L (98-107) Carbon Dioxide Level 24 mmol/L (20-31) Anion Gap 10 (5-15) Blood Urea Nitrogen 26 mg/dL (9-23) Creatinine 0.92 mg/dL (0.550-1.02) Glomerular Filtration Rate Calc 63 mL/min (>90) BUN/Creatinine Ratio 28.3 (10.0-20.0) Serum Glucose 108 mg/dL (74-106) Calcium Level 10.8 mg/dL (8.7-10.4) Other Laboratory Tests 11/14/24 13:56 Brief Hx & Hospital Course: S/P CAROTID STENTING NOW WITH BRADYCARDIA HYPOTENSION DOPAMINE Assessment/Plan TITRATE OFF DOPAMINE OFF DOPAMINE BL STABLE HR STABLE Operations or Procedures CAROTID ANGIO WITH STENTING Condition at Discharge: Good Final Diagnosis/Problems List CVA S/P CAROTID STENTING BRADYCADIA Discharge Disposition: Home Discharge Instruct/Medications Diet: Cardiac 2g Na,low cholest Activity: No Restrictions, As Tolerated Follow Up/Referral: 1 WEEK Medications: PLAVIX 75 MG PO QD Discharge Statement: "Patient was advised to return to the ER or call 911 if any headaches, dizziness, shortness of breath, chest pain, abdominal pain, bleeding, fevers, or worsening of medical condition. Patient was counseled about treatment plan, medications, possible side effects, patientverbalized understanding. All questions were answered to the best of my ability. This discharge took greater then 30 minutes in planning, reviewing documentation, counseling the patient, and discussing with other team members." ASSESSMENT ASSESSMENT Assessment CVA S/P CAROTID STENTING BRADYCADIA JOSE LAGOS MD Nov 22, 2024 10:29
[2024-11-22 12:30] VITALS: BP 153/59; PULSE 62; RESP 16; TEMP 98.6; O2SAT 94
== END 2024-11-22 15:35 | disposition home or self-care (01) | DRG 24 ==
LOC: CATH 09:30 → OVERFLOW 14:59 → TELE-EAST 17:56
PROVIDERS: ADMIT Internal Medicine Cardiovascular Disease; ATTEND Internal Medicine Cardiovascular Disease
PROC: 03CK3ZZ Extirpation of Matter from Right Internal Carotid Artery, Percutaneous Approach (ICD-10-PCS; principal; 2024-11-18)
PROC: 037K34Z Dilation of Right Internal Carotid Artery with Drug-eluting Intraluminal Device, Percutaneous Approach (ICD-10-PCS; 2024-11-18)
PROC: B31 Imaging, Upper Arteries, Fluoroscopy (ICD-10-PCS; 2024-11-18)
DX: I63.9 Cerebral infarction, unspecified (principal); I73.9 Peripheral vascular disease, unspecified; I95.9 Hypotension, unspecified; I10 Essential (primary) hypertension; E78.5 Hyperlipidemia, unspecified; Z79.82 Long term (current) use of aspirin; Z79.899 Other long term (current) drug therapy; Z82.49 Family history of ischemic heart disease and other diseases of the circulatory system; Z86.73 Personal history of transient ischemic attack (TIA), and cerebral infarction without residual deficits; Z87.891 Personal history of nicotine dependence
CPT/HCPCS: 36223; 36415; 37215; 80048; 85025; 85610; 85730; 99152; G0378

== ENCOUNTER → 2024-12-14 | Outpatient (CLI) | payer MEDICARE | END | disposition home or self-care (01) | LOC: Rad HDHVI 12:52 | PROVIDERS: ATTEND Internal Medicine Cardiovascular Disease | DX: I10 Essential (primary) hypertension (principal); E78.5 Hyperlipidemia, unspecified | CPT/HCPCS: 93880 ==

== ENCOUNTER → 2024-12-28 | Outpatient (CLI) | payer MEDICARE ==
[2024-12-28 11:18] LABS: Urine Bacteria None Seen /hpf (None Seen)
[2024-12-28 11:23] LABS: Basophils # (auto) 0.1 10 ^3/uL (0-0.2); Basophils % (auto) 2.2 % (0.0-2.0); Eosinophils # (auto) 0.1 10 ^3/uL (0-0.8); Eosinophils % (auto) 1.3 % (0.0-7.0); Hematocrit 37.8 % (36.0-46.0); Hemoglobin 12.6 g/dL (12.2-16.2); Mean Corpuscular Hgb Conc. 33.3 g/dL (32.0-36.0); Mean Corpuscular Volume 78.1 fL (80.0-100.0); Monocytes # (auto) 0.4 10 ^3/uL (0-1.3); Monocytes % (auto) 6.2 % (0.0-12.0); Neutrophils # (auto) 3.2 10 ^3/uL (1.6-8.6); Neutrophils % (auto) 55.3 % (37.0-80.0); Nucleated Red Blood Cells % 0.1 %; Platelet Count (auto) 307 10^3/uL (140-450); Red Blood Cells 4.85 10^6/uL (4.0-5.20); Red Cell Distribution Width 22.9 % (11.8-14.3); White Blood Cell 5.7 10^3/uL (4.4-10.8)
[2024-12-28 11:31] LABS: Urine Blood Negative /uL (Negative); Urine Clarity Clear (Clear); Urine Color Light-Yellow (Yellow); Urine Protein, UAD Negative (Negative); Urine Specific Gravity 1.009 (1.001-1.035); Urine Squamous Epithelial Cell None Seen /hpf (<5); Urine Urobilinogen Normal (Negative); Urine WBC < 1 /HPF (0-5); Urine pH 5.5 (5.0-9.0)
[2024-12-28 11:38] LABS: % Iron Saturation 39.8 % (15-50); Chloride 105 mmol/L (98-107); Potassium 4.6 mmol/L (3.5-5.1); Sodium 138 mmol/L (136-145)
[2024-12-28 11:39] LABS: Anion Gap 11 (5-15); Carbon Dioxide 22 mmol/L (20-31)
[2024-12-28 11:42] LABS: Folate (Folic Acid) 18.4 ng/mL (>5.38)
[2024-12-28 11:45] LABS: BUN/Creatinine Ratio 20.6 (10.0-20.0); Blood Urea Nitrogen 21 mg/dL (9-23); Total Protein 7.9 g/dL (5.7-8.2); Triglycerides 68 mg/dL (< 150)
[2024-12-28 11:46] LABS: Alanine Aminotransferase 21 U/L (7-40); Aspartate Aminotransferase 20 U/L (13-40); Cholesterol 196 mg/dL (< 200)
[2024-12-28 11:47] LABS: Bilirubin, Total 0.6 mg/dL (0.2-1.0)
[2024-12-28 11:52] LABS: Albumin 5.1 g/dL (3.2-4.8); Alkaline Phosphatase 138 U/L (46-116); Calcium 11.1 mg/dL (8.7-10.4); Glucose 119 mg/dL (74-106); HDL Cholesterol 64 mg/dL (40-59); LDL Cholesterol 116 mg/dL (< 100)
== END | disposition home or self-care (01) ==
LOC: LAB 11:02
PROVIDERS: ATTEND Nurse Practitioner Family
DX: I10 Essential (primary) hypertension (principal); E78.5 Hyperlipidemia, unspecified; E55.9 Vitamin D deficiency, unspecified; D64.9 Anemia, unspecified; R73.03 Prediabetes
CPT/HCPCS: 36415; 80053; 80061; 81001; 82306; 82607; 82746; 83036; 83540; 83550; 84443; 85025

== ENCOUNTER 2025-02-07 10:10 | Emergency (ER) | payer MEDICARE, OTHER ==
[~2025-02-07] VITALS: Ht 154.9 cm; Wt 63.7 kg
--- NOTE | 2025-02-07 11:10 | ED.PDOC ---
Musculoskeletal HPI Comments Portions of this chart may have been created with an modal fluency direct voice recognition software. Occasional wrong-word or "sound-alike" substitutions may have occurred due to the inherent limitations of voice recognition software. Please read the chart carefully and recognize, using context, where these substitutions have occurred. 80 y/o F, with PMHx of DM, HTN, and HLD presents to the ED for CC of upper extremity. Patient states, she has been experiencing bilateral arm pain with associated right shoulder and right hip pain onset, [id number]. Patient endorses, seeing her PCP for symptoms and being told symptoms could be d/t possible arthritis. Patient denies trauma, injury, or fall. No other symptoms or modifying factors present at this time. Chief Complaint: Upper Extremity Time Seen by MD: 11:10 Primary Care Provider: DAXA Reviewed Notes: Nurses Notes, Medications, Allergies Allergies: Coded Allergies: NO KNOWN ALLERGIES (Unverified , 12/26/23) Home Meds Reported Medications Amlodipine Besylate-Olmesartan (Amlodipine/Olmesartan Med 10-20 mg) 1 Tab Tab, 1 TAB PO DAILY for HTN, TAB 11/15/24 Vericiguat (Verquvo) 5 Mg Tab, 5 MG PO BID for circulation, TAB 11/15/24 Clopidogrel Bisulfate (CLOPIDOGREL) 75 Mg Tab, 75 MG PO DAILY for CAROTID STENOSIS, MG 11/14/24 Gabapentin (Gabapentin) 300 Mg Cap, 300 MG PO DAILY for NEUROPATHY, MG 11/14/24 Calcium Carbonate (Calcium) 600 Mg Tab, 1200 MG PO DAILY for SUPPLEMENT, TAB 11/14/24 Magnesium (Magnesium) 250 Mg Tab, 250 MG PO DAILY for SUPPLEMENT, TAB 11/14/24 Aspirin (Aspir-Low) 81 Mg Tab, 81 MG PO DAILY, MG 11/14/24 Atorvastatin Calcium (ATORVASTATIN CALCIUM) 40 Mg Tab, 1 TAB PO DAILY for HIGH CHOLESTEROL, #30 TAB 5 Refills 11/14/24 Information Source: Patient Mode of Arrival: Ambulatory Location: Right, Bilateral Extremity Location: Arm, Hip (RIGHT HIP), Shoulder (RIGHT SHOULDER) Timing: Weeks Prehospital treatment: None Severity: Moderate Able to Move Extremity: Yes Bear Weight: Fully Pain: Moderate Mechanism: Spontaneous Circumstances: Spontaneous Onset of Symptoms: Spontaneous Symptoms: Pain DVT Risk Factors: NONE Last Tetanus: Unknown Associated signs and symptoms: Shoulder pain, Arm pain, Hip pain Past Medical History PAST MEDICAL HISTORY: DM, High Lipids, HTN Surgical History: BTL, Tonsillectomy 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 No shoulder drop visible. No clavicular tenderness on palpation. Palpation tenderness to coracoid process and acromion process. No scapular, supraspinatus, infraspinatus tenderness to touch. Limited flexion passive movement due to pain. Pain with abduction. Weston test + . Empty can test +. General Appearance: No Apparent Distress, Normal HEENT: Normal ENT Inspection, Pharynx Normal, TMs Normal Neck: Full Range of Motion, Non-Tender, Normal, Normal Inspection Respiratory: Chest Non-Tender, Lungs Clear, No Accessory Muscle Use, No Respiratory Distress, Normal Breath Sounds Cardiovascular: No Edema, No Murmur, No Gallop, Normal Peripheral Pulses, Regular Rate/Rhythm Breast Exam: Deferred Gastrointestinal: No Organomegaly, Non Tender, No Pulsatile Mass, Normal Bowel Sounds, Soft Genitalia: Deferred Pelvic: Deferred Rectal: Deferred Extremities: No calf tenderness, Normal capillary refill, Normal inspection, Normal range of motion, Non-tender, No pedal edema, Other Musculoskeletal : Location: Right Extremity Location: Shoulder (No gross abnormality on inspection. No shoulder drop visible. No clavicular tenderness on palpation. Palpation tenderness to coracoid process and acromion process. No scapular, briscoe praspinatus, infraspinatus tenderness to touch. Limited flexion passive movement due to pain. Pain with abduction. ), Other Apperance: Normal Neurologic: Alert, senior production planner II-XII nml as Tested, No Motor Deficits, Normal Affect, Normal Mood, No Sensory Deficits Cerebellar Function: Normal Reflexes: Normal Skin: Dry, Normal Color, Warm Lymphatic: No Adenopathy Was a procedure done? Was a procedure done?: No Differential Diagnosis EXT Differential Diagnosis: Fracture, Sprain, Dislocation, Strain X-Ray, Labs, Meds, VS Vital Signs Date Time Temp Pulse Resp B/P (MAP) Pulse Ox O2 Delivery O2 Flow Rate FiO2 02/07/25 14:15 98.6 98 16 138/78 (98) 98 98.6 02/07/25 11:15 97 18 97 Room Air 02/07/25 11:15 99.2 97 18 123/81 (95) 97 99.2 02/07/25 10:20 99.2 97 18 123/81 (95) 97 99.2 [place] [id number] Ph: [phone] DIAGNOSTIC IMAGING Diagnostic Imaging Report : [id number] Signed PATIENT: HECTOR PENNY ACCT: [id number] UNIT: [id number] : 1945 LOC: ER ROOM / BED: / AGE / SEX: 80 / F ADM STATUS: REG ER SERVICE 1134 ORDERING PHYSICIAN: KAYLIN TORRES NP PROCEDURE(s): RSHD2 - R SHOULDER 2+ VIEW XRAY REASON: Pain. Suspect OA? ORDER NUMBER(s): [id number], ACCESSION NUMBER(s): [id number] XY R SHOULDER 2+ VIEW XRAY INDICATION: Pain. Suspect OA TECHNICAL DATA: 3 views were obtained of the right shoulder. COMPARISON: None FINDINGS: No acute fracture or dislocation in the right shoulder. IMPRESSION: 1. No acute fracture or dislocation of the right shoulder. HS:Y ATED BY: CAYETANO GE MD DICTATED DATE/TIME: 02/07/25 120 SIGNED BY: CAYETANO GE MD SIGNED DATE/TIME: 02/07/25 120 CC: X-Ray, Labs, Meds, VS Comment 80 y/o F, with PMHx of DM, HTN, and HLD presents to the ED for CC of upper extremity. Patient arrives alert and oriented, ABC's intact, afebrile, vital signs stable, saturating well in room air Diagnostic imaging ordered by me and results interpreted by radiology : RIGHT SHOULDER XR IMPRESSION: 1. No acute fracture or dislocation of the right shoulder. Ordered second films and results showed: Persistent low-lying appearance to the humerus with respect to the glenoid fossa. This may be related to large joint effusion. Clinical correlation advised. Consulted with ortho on-call. Patient will be seen in clinic tomorrow at 1:00 p.m. Additional MDM Review of External, Non-ED records: External records reviewed. Discussion with independent historian (EMS, family) history obtained from the patient/parents (if applicable) at bedside Chronic conditions affecting care: DM, HLD, HTN Social determinants of health affecting care: None Consideration of admission (observation or admission): I considered escalation of care to admission for this patient, however given the reassuring workup, the patient is safe for outpatient management. Time of 1ST Reevaluation: 11:40 Reevaluation 1ST: Unchanged Patient Education/Counseling: Diagnosis, Treatment Family Education/Counseling: No Family Present Departure 1 Departure Time of Disposition: 14:11 Impression: Primary Impression: Internal derangement of right shoulder Disposition: 01 HOME / SELF CARE / HOMELESS Condition: Stable Critical Care Note Critical Care Time?: No Stability Stability form required: No Heart Score Heart Score: Heart Score Response (Comments) Value History N/A 0 EKG N/A 0 Age N/A 0 Risk Factors N/A 0 Troponin N/A 0 Total 0 I personally scribed for MELISSAJENNIFERO F BOX REPAIRER ([email or web address]) on 02/07/25 at 11:10. Elect ronically submitted by Yumi Hooker ([email or web address]). I personally scribed for MELISSAJENNIFERO F BOX REPAIRER ([email or web address]) on 02/07/25 at 11:19. Electronically submitted by Yumi Hooker ([email or web address]). I personally scribed for MELISSAKAYLIN F BOX REPAIRER ([email or web address]) on 02/07/25 at 11:40. Electronically submitted by Yumi Hooker ([email or web address]). I personally scribed for MELISSAKAYLIN F BOX REPAIRER ([email or web address]) on 02/07/25 at 12:04. Electronically submitted by Yumi Hooker ([email or web address]). I personally scribed for MELISSAKAYLIN F BOX REPAIRER ([email or web address]) on 02/07/25 at 12:10. Electronically submitted by Yumi Hooker ([email or web address]). KAYLIN TORRES NP Feb 07, 2025 11:10
--- NOTE | 2025-02-07 12:05 | DVH ---
XY R SHOULDER 2+ VIEW XRAY INDICATION: Pain. Suspect OA TECHNICAL DATA: 3 views were obtained of the right shoulder. COMPARISON: None FINDINGS: No acute fracture or dislocation in the right shoulder. IMPRESSION: 1. No acute fracture or dislocation of the right shoulder. HS:Y
--- NOTE | 2025-02-07 12:55 | DVH ---
CLINICAL INDICATION: Comparisson study TECHNIQUE: XY R SHOULDER 1V XRAY Comparison: XY R SHOULDER 2+ VIEW XRAY on DOS: 02/07/25 FINDINGS/IMPRESSION: : No acute fracture. Persistent low-lying appearance to the humerus with respect to the glenoid fossa. This may be related to large joint effusion. Clinical correlation advised.
[2025-02-07 14:15] VITALS: BP 138/78; PULSE 98; RESP 16; TEMP 98.6; O2SAT 98
== END 2025-02-07 14:16 | disposition home or self-care (01) ==
LOC: ER 10:10
DX: M24.811 Other specific joint derangements of right shoulder, not elsewhere classified (principal); M79.602 Pain in left arm; M25.551 Pain in right hip; I10 Essential (primary) hypertension; E11.9 Type 2 diabetes mellitus without complications; E78.5 Hyperlipidemia, unspecified; Z79.82 Long term (current) use of aspirin; Z79.899 Other long term (current) drug therapy; Z90.89 Acquired absence of other organs; Z98.51 Tubal ligation status
CPT/HCPCS: 73020; 73030

== ENCOUNTER 2025-02-08 16:20 | Emergency (ER) | payer MEDICARE, OTHER | END 2025-02-08 16:50 | disposition left against medical advice (07) | LOC: ER 16:20 | DX: M79.643 Pain in unspecified hand (principal); Z53.21 Procedure and treatment not carried out due to patient leaving prior to being seen by health care provider ==

== ENCOUNTER 2025-03-30 13:13 | Outpatient (CLI) | payer MEDICARE ==
[2025-03-30 13:26] LABS: Hematocrit 40.1 % (36.0-46.0); Hemoglobin 13.6 g/dL (12.2-16.2); Mean Corpuscular Hemoglobin 28.9 pg (28.0-32.0); Mean Corpuscular Volume 85.0 fL (80.0-100.0); Nucleated Red Blood Cells % 0.1 %
[2025-03-30 14:07] LABS: Alanine Aminotransferase 28 U/L (7-40); Alkaline Phosphatase 105 U/L (46-116); Anion Gap 9 (5-15); BUN/Creatinine Ratio 18.9 (10.0-20.0); Blood Urea Nitrogen 17 mg/dL (9-23); Calcium 10.4 mg/dL (8.7-10.4); Carbon Dioxide 27 mmol/L (20-31); Chloride 99 mmol/L (98-107); Glucose 100 mg/dL (74-106); Potassium 4.2 mmol/L (3.5-5.1); Total Protein 7.2 g/dL (5.7-8.2); Triglycerides 94 mg/dL (< 150)
[2025-03-30 14:08] LABS: Albumin 4.7 g/dL (3.2-4.8); Bilirubin, Total 0.6 mg/dL (0.2-1.0); Cholesterol 203 mg/dL (< 200); HDL Cholesterol 72 mg/dL (40-59); Sodium 135 mmol/L (136-145)
[2025-03-30 14:36] LABS: Urine Protein, UAD Negative (Negative)
== END 2025-03-30 17:00 | disposition home or self-care (01) ==
LOC: LAB 13:13
PROVIDERS: ATTEND Nurse Practitioner Family
DX: I12.9 Hypertensive chronic kidney disease with stage 1 through stage 4 chronic kidney disease, or unspecified chronic kidney disease (principal); N18.4 Chronic kidney disease, stage 4 (severe); E55.9 Vitamin D deficiency, unspecified; E78.5 Hyperlipidemia, unspecified; Z79.899 Other long term (current) drug therapy
CPT/HCPCS: 36415; 80053; 80061; 81001; 82306; 83036; 83970; 84443; 85025

== ENCOUNTER 2025-08-01 11:07 | Outpatient (CLI) | payer MEDICARE ==
[2025-08-01 11:38] LABS: Hematocrit 39.3 % (36.0-46.0); Hemoglobin 13.0 g/dL (12.2-16.2); Mean Corpuscular Hemoglobin 29.5 pg (28.0-32.0); Mean Corpuscular Volume 88.9 fL (80.0-100.0); Nucleated Red Blood Cells % 0.0 %
[2025-08-01 12:15] LABS: Alanine Aminotransferase 21 U/L (7-40); Albumin 4.4 g/dL (3.2-4.8); Anion Gap 9 (5-15); BUN/Creatinine Ratio 25.3 (10.0-20.0); Bilirubin, Total 0.4 mg/dL (0.2-1.0); Calcium 10.0 mg/dL (8.7-10.4); Carbon Dioxide 26 mmol/L (20-31); Chloride 103 mmol/L (98-107); Cholesterol 189 mg/dL (< 200); Glucose 105 mg/dL (74-106); Potassium 4.2 mmol/L (3.5-5.1); Sodium 138 mmol/L (136-145); Total Protein 7.2 g/dL (5.7-8.2); Triglycerides 66 mg/dL (< 150)
[2025-08-01 12:24] LABS: Alkaline Phosphatase 126 U/L (46-116); Blood Urea Nitrogen 24 mg/dL (9-23); HDL Cholesterol 68 mg/dL (40-59)
== END 2025-08-01 17:00 | disposition home or self-care (01) ==
LOC: LAB 11:07
PROVIDERS: ATTEND Nurse Practitioner Family
DX: I10 Essential (primary) hypertension (principal); E78.5 Hyperlipidemia, unspecified; E55.9 Vitamin D deficiency, unspecified; Z79.899 Other long term (current) drug therapy
CPT/HCPCS: 36415; 80053; 80061; 82306; 83036; 84443; 85025